=== PATIENT | female | born 1985 | race Caucasian/White ===

== ENCOUNTER 2017-01-03 14:24 | Emergency (ER) | payer BC ==
[~2017-01-03] VITALS: Ht 157.5 cm; Wt 70.3 kg
--- NOTE | 2017-01-03 14:26 | NUR ---
PT TO ER BED 14 C/O CHEST PAIN SINCE LAST NIGHT POST TAKING METH AND HEROIN. PT IS TACHYCARDIC TILE PROFESSIONAL. ALSO C/O HEADACHE. GOWNED AND PLACED ON MONITOR. AWIATING MD ROSENBERG.
--- NOTE | 2017-01-03 15:13 | NUR ---
DR BONILLA AT BEDSIDE FOR EVAL.
--- NOTE | 2017-01-03 15:28 | NUR ---
IV LINE STARTED BLOOD DRAWN AND SENT TO LAB.
[2017-01-03] MEDS ORDERED: ONDANSETRON HCL/PF 4 MG/2 ML VIAL IVP ONE (15:30)
[2017-01-03] MEDS ORDERED: IV NS 0.9% 1,000 ML BAG IV ONE (15:30)
[2017-01-03] MEDS ORDERED: IV NS 0.9% 1,000 ML ONE (15:35)
[2017-01-03] MEDS ORDERED: ONDANSETRON HCL/PF 4 MG/2 ML VIAL ONE (15:35)
[2017-01-03] MEDS ORDERED: IV SET PRIMARY 1 EA INFUS.SET MC ONE (15:35)
[2017-01-03 15:42] LABS: BASOPHILS % (AUTO) 0.2 % (0.0-2.0); EOSINOPHILS # (AUTO) 0.1 /CMM (0.0-0.7); EOSINOPHILS % (AUTO) 0.8 % (0.0-6.0); HEMATOCRIT 36 % (33-45); HEMOGLOBIN 12.5 g/dL (11.5-14.8); LYMPHOCYTES # (AUTO) 1.7 /CMM (0.8-4.8); LYMPHOCYTES % (AUTO) 11.1 % (20.0-44.0); MEAN CORPUSCULAR HEMOGLOBIN 30 PG (26.0-33.0); MEAN CORPUSCULAR HGB CONC 35 g/dl (31.0-36.0); MEAN CORPUSCULAR VOLUME 87 fL (82-100); MONOCYTES # (AUTO) 0.5 /CMM (0.1-1.30); MONOCYTES % (AUTO) 3.3 % (2.0-12.0); NEUTROPHILS # (AUTO) 13.2 /CMM (1.8-8.9); NEUTROPHILS % (AUTO) 84.6 % (43.0-81.0); PLATELET COUNT (AUTO) 350 /CMM (150-450); RED BLOOD CELL COUNT(AUTO) 4.11 MIL/uL (4.0-5.2); WHITE BLOOD COUNT (AUTO) 15.6 K/uL (4.3-11.0)
[2017-01-03] MEDS ORDERED: CLONIDINE HCL 0.1 MG TABLET ONE (16:03)
[2017-01-03] MEDS ORDERED: CLONIDINE HCL 0.1 MG TABLET PO ONE (16:30)
[2017-01-03] MEDS ORDERED: ACETAMINOPHEN ES 500 MG TABLET ONE (16:39)
--- NOTE | 2017-01-03 16:46 | NUR ---
PT C/O HEADACHE. REQUESTING TYLENOL. DR BONILLA MADE AWARE. TYLENOL 1GM PO GIVEN.
[2017-01-03 16:50] LABS: CALCIUM, SERUM 8.7 mg/dL (8.5-10.1); CREATININE 0.6 mg/dL (0.6-1.3); POTASSIUM 2.9 mmol/L (3.5-5.1)
[2017-01-03 16:55] LABS: ALBUMIN 3.6 g/dL (3.4-5.0); BILIRUBIN,DIRECT 0.1 mg/dL (0.0-0.2); BILIRUBIN,TOTAL 0.5 mg/dL (0.2-1.0)
[2017-01-03] MEDS ORDERED: ACETAMINOPHEN ES 500 MG TABLET PO ONE (17:00)
--- NOTE | 2017-01-03 17:33 | NUR ---
PT STATES FEELING MUCH BETTER. VSS. Patient discharged to home in stable condition. Written and verbal after care instructions given. Patient verbalizes understanding of instruction.IV removed. Catheter intact and site benign. Pressure and 4x4 applied to site. No bleeding noted.
[2017-01-03 17:35] VITALS: BP 144/86
== END 2017-01-03 17:36 | disposition home or self-care (01) ==
LOC: ER 14:34
DX: L03.211 Cellulitis of face (principal); F15.10 Other stimulant abuse, uncomplicated; F11.10 Opioid abuse, uncomplicated; F32.9 Major depressive disorder, single episode, unspecified; F17.200 Nicotine dependence, unspecified, uncomplicated; S00.511A Abrasion of lip, initial encounter; S00.81XA Abrasion of other part of head, initial encounter; X58.XXXA Exposure to other specified factors, initial encounter; Y93.89 Activity, other specified; Y92.89 Other specified places as the place of occurrence of the external cause; Y99.9 Unspecified external cause status
CPT/HCPCS: 36415; 71010-TC; 80048-TC; 80076-TC; 85025-TC; A4606; J2405; J7030; Z7610

== ENCOUNTER 2017-04-20 22:01 | Emergency (ER) | payer BC ==
[~2017-04-20] VITALS: Ht 157.5 cm; Wt 71.7 kg
--- NOTE | 2017-04-20 22:01 | NUR ---
BB RA78 & [employer] FROM HOME. PER EMS REPORT, SISTER CALLED 911- "ACTING WEIRD" PT ADMITS METH & HEROIN ABUSE TODAY; REPORTS NO SLEEP x4 DAYS
[2017-04-20] MEDS ORDERED: VENL150C2 PO (22:13)
[2017-04-20] MEDS ORDERED: CLON0.1T PO (22:13)
[2017-04-20] MEDS ORDERED: HYDR10SY7 PO (22:13)
[2017-04-20] MEDS ORDERED: BUPR-96 PO (22:13)
--- NOTE | 2017-04-20 23:37 | NUR ---
CALLED [place] SISTER LEFT VOICEMAIL [phone]
--- NOTE | 2017-04-20 23:40 | NUR ---
SPOKE WITH PT'S SISTER [place] WHOM SAID SHE WOULD FITNESS TRAINER PT FROM WAITING FROM IF THE ER NEEDED THE BED FOR A SICK PT. [phone]
--- NOTE | 2017-04-20 23:50 | NUR ---
VERBAL ORDER FROM DR CALVILLO FOR RESTRAINTS DUE TO AGITATION AND RESTLESSNESS.
--- NOTE | 2017-04-21 01:47 | NUR ---
medicate pt as ordered
--- NOTE | 2017-04-21 09:35 | NUR ---
[facility] [phone]
--- NOTE | 2017-04-21 11:10 | NUR ---
Patient is resting comfortably in bed with eyes closed. Easily aroused. VSS
--- NOTE | 2017-04-21 11:20 | NUR ---
PATIENT ON BED. SITTER AT BEDSIDE.
--- NOTE | 2017-04-21 11:40 | NUR ---
FAX NUMBER- [facility]-[phone]
--- NOTE | 2017-04-21 11:44 | NUR ---
TRIED WAKING UP PATIENT TO TALK TO [facility]IN FROM [facility] BUT PATIENT STILL LOOKS DROWSY--VSS
--- NOTE | 2017-04-21 12:40 | NUR ---
CIERRA WHITE (FATHER ) WOULD LIKE TO BE CALLED PRIOR TO DISCHARGED
--- NOTE | 2017-04-21 13:38 | NUR ---
PATIENT IS AWAKE, REFUSING TO GO TO [facility]. CALLED PATIENT'S FATHER- CIERRA BUT HE'S IN [place], CANNOT ERECTION SHOP SUPERVISOR THE PATIENT,. EXPLAINED TO THE PT THE IMPORTANCE OF REHAB. WILL CONT TO OFFER'
--- NOTE | 2017-04-21 13:40 | NUR ---
CALLED ALVIN FROM [facility],NO ANSWER,. LEFT A VOICEMAIL. -- PER ALVIN, SHE NEEDS TO TALK TO THE PT FISRT BEFORE THEY COULD TAKE THE PT
--- NOTE | 2017-04-21 14:09 | NUR ---
MEAL TRAY AT BEDSIDE
--- NOTE | 2017-04-21 16:42 | NUR ---
Patient is resting comfortably in bed with eyes closed. Easily aroused. VSS
--- NOTE | 2017-04-21 18:24 | NUR ---
LEFT A VOICEMAIL TO COLLEEN FROM [facility]
--- NOTE | 2017-04-21 18:26 | NUR ---
[phone] [facility] AFTER OFFICE HOURS NUMBER-- CALLED-- NO ANSWER
--- NOTE | 2017-04-21 18:39 | NUR ---
patient's father was called by [facility] - now, the patient is willing to go acute rehabilition.
--- NOTE | 2017-04-21 18:40 | NUR ---
COLLEEN Herrera [phone] NOTIFIED US THAT PATIENT HAD TO BE THERE BEFORE 1600, THEY CANNOT ACCOMMODATE AN ADMISSION AFTER HOURS.
--- NOTE | 2017-04-21 19:24 | NUR ---
SPOKE WITH PATIENT'S MOTHER. THEY ARE ARRANGING FOR PATIENT TO BE ACCEPTED AT [facility]. SHE WILL UPDATE ONCE THEY HAVE MORE INFORMATION
--- NOTE | 2017-04-21 21:39 | NUR ---
SPOKE WITH VISHNU CARRENO RN AT [facility] [phone]. EXPECTING CALL BACK REGARDING STATUS OF PTS ACCEPTANCE AT [facility]
--- NOTE | 2017-04-21 23:13 | NUR ---
PATIENT AWAKE, VSS
[2017-04-21 23:30] VITALS: BP 118/72
--- NOTE | 2017-04-21 23:45 | NUR ---
VISHNU FROM [facility] CALLED AND INFORMED US THAT PER DON, PATIENT WAS NOT ACCEPTED TO THEIR FACILITY FOR DETOX DT PT HAS BEEN AN OPIOID USER FOR A LONG TIME. MD GARCIA MADE AWARE.
--- NOTE | 2017-04-21 23:59 | NUR ---
Patient discharged to waiting room to wait for her sister to pick her up and drive her home in stable condition. Written and verbal after care instructions given. Patient verbalizes understanding of instruction. Pt ambulatory with a steady gait. GENEVA LEVINE noted on DC.
--- NOTE | 2017-04-22 08:11 | NUR ---
SEAN received a call from RHINA Yates in ED requesting assistance in finding drug treatment program for the patient. [place] informed SW that [facility] was accepting pt. and to call Hads at . SEAN contacted [facility] who informed SW that she needs to speak with the patient prior to accepting pt. SEAN met with pt. in ED and called Hadaas with pt. nearby. Hadass was unavailable. SEAN left her a message asking her to call the ED and ask for the pt.
--- NOTE | 2017-04-22 10:18 | NUR ---
SW went to ED to check on pt. to see if she spoke to Hadaas at [facility]. Sadia from [facility] was present in the ED waiting room with the pt. and was discharged to [facility] program [place] [id number] [place] [address]. .
== END 2017-04-22 | disposition home or self-care (01) ==
LOC: ER 22:02
DX: H00.034 Abscess of left upper eyelid (principal); L03.115 Cellulitis of right lower limb; F15.10 Other stimulant abuse, uncomplicated; F32.9 Major depressive disorder, single episode, unspecified; F17.200 Nicotine dependence, unspecified, uncomplicated; F11.10 Opioid abuse, uncomplicated; R45.1 Restlessness and agitation; H10.9 Unspecified conjunctivitis; Z72.0 Tobacco use
CPT/HCPCS: A4606; J1200; J2060; J3490; Z7610